=== PATIENT | male | born 1935 | race Caucasian/White ===

== ENCOUNTER → 2019-01-28 | Outpatient (CLI) | payer MEDICARE, BC ==
[~2019-01-28] MED LIST: ASPIRIN 81M81 MG/TA2 PO; CARDIZEM LA300 MG PO; CETIRIZINE10 MG PO; HCTZ 25MG TAB25 MG PO; LOPRESSOR100 MG PO; PRILOTC PO; ZOCOR 80MG80 MG PO
== END ==
LOC: DIA.ED 01-26 16:21
DX: E11.9 Type 2 diabetes mellitus without complications (principal); E78.5 Hyperlipidemia, unspecified; I10 Essential (primary) hypertension
CPT/HCPCS: G0108

== ENCOUNTER 2023-04-26 12:49 | Emergency (ER) | payer MEDICARE, BC ==
[~2023-04-26] VITALS: Ht 162.6 cm; Wt 79.5 kg
[2023-04-26 12:57] VITALS: TEMP 98.6
[2023-04-26 16:57] LABS: HEMATOCRIT 45.6 % (42.0-52.0); HEMOGLOBIN 15.2 g/dl (13.5-18.0); MEAN CELL VOLUME 89 fl (80.0-100.0); MEAN CORPUSCULAR HEMOGLOBIN 30 pg (27-31); MEAN CORPUSCULAR HGB CONC 33 g/dl (33.0-37.0); MEAN PLATELET VOLUME 11.1 fl (7.4-10.4); PLATELET COUNT 218 K/mm3 (130-400); RED BLOOD COUNT 5.12 M/mm3 (4.20-5.60)
[2023-04-26 17:15] LABS: ALBUMIN 3.8 gm/dL (3.4-4.8); BILIRUBIN,TOTAL 0.9 mg/dL (0.2-1.2); C-REACTIVE PROTEIN 10.08 mg/dL (0.00-0.50); CALCIUM 9.9 mg/dL (8.4-10.2); CREATININE, serum 1.04 mg/dL (0.72-1.25); POTASSIUM 3.5 mmol/L (3.5-4.5); TOTAL PROTEIN 7.8 gm/dL (6.2-8.1)
[2023-04-26 17:45] LABS: BAND 3 % (0-10); LYMPHOCYTE 14 % (20.0-51.0); METAMYELOCYTE 1 % (0-0); NEUTROPHILS 71 % (42.0-75.2)
[2023-04-26 17:46] LABS: PLATELET ESTIMATE NORMAL (NORMAL)
[2023-04-26 18:44] VITALS: BP 148/72; PULSE 84
== END 2023-04-26 19:02 | disposition home or self-care (01) ==
LOC: COL.ER 12:49
PROVIDERS: Emergency Medicine
DX: U07.1 COVID-19 (principal); R05.9 Cough, unspecified; R50.9 Fever, unspecified; R19.7 Diarrhea, unspecified; R09.81 Nasal congestion; M79.10 Myalgia, unspecified site
CPT/HCPCS: J1885; J7030